=== PATIENT | female | born 1985 | race Caucasian/White ===

== ENCOUNTER 2023-03-26 13:11 | Emergency (ER) | payer SELFPAY ==
[~2023-03-26] VITALS: Ht 162.5 cm; Wt 141.5 kg
[2023-03-26] MEDS ORDERED: VIBRA-TAB100 MG PO ×2 (14:46→14:49)
== END 2023-03-26 15:07 | disposition home or self-care (01) ==
LOC: ED 13:11
DX: L03.213 Periorbital cellulitis (principal)

== ENCOUNTER 2023-06-17 13:30 | Emergency (ER) | payer SELFPAY ==
[~2023-06-17] VITALS: Ht 160 cm; Wt 142.0 kg
[~2023-06-17 13:30] MED LIST: VIBRA-TAB100 MG PO
[2023-06-17] MEDS ORDERED: Acetaminophen/Hydrocodone 5 MG/325 MG TABLET PO ONE (13:50)
== END 2023-06-17 14:17 | disposition home or self-care (01) ==
LOC: ED 13:30
DX: S92.512A Displaced fracture of proximal phalanx of left lesser toe(s), initial encounter for closed fracture (principal); W10.9XXA Fall (on) (from) unspecified stairs and steps, initial encounter; Y93.89 Activity, other specified; Y92.89 Other specified places as the place of occurrence of the external cause; Y99.8 Other external cause status